=== PATIENT | male | born 1970 | race Caucasian/White ===

== ENCOUNTER → 2025-08-05 | Day surgery (SDC) | payer MEDICARE, MEDICAID ==
[~2025-08-05] VITALS: Ht 165.1 cm; Wt 98.9 kg
[~2025-08-05] MED LIST: ACETAMINOPHEN 325MG TABLET PO PRN; ASPI-1497 PO; ATOR40TA70 PO; CARV3.1242 PO; CLOP-31 PO; FENTANYL CITRATE/PF 50MCG/ML 2ML VIAL ONE; FURO20TA4 PO; HEPARIN 1000 UNITS/ML 10ML ONE; IODIXANOL 320 MG/ML 150ML BOTTLE IV ONE; LIDOCAINE HCL 1% 20ML VIAL ONE; LOSA25TA26 PO; MIDAZOLAM HCL 2 MG/2 ML VIAL ONE; ONDANSETRON HCL 4MG/2ML INJ IV PRN; POTA-205 PO; SITA1TAB6 PO; SODIUM CHLORIDE 0.45% 500 ML IV ONE
== END | disposition home or self-care (01) ==
LOC: CCL 05:24
PROVIDERS: ATTEND Specialist
DX: I25.10 Atherosclerotic heart disease of native coronary artery without angina pectoris (principal); I25.5 Ischemic cardiomyopathy; I49.3 Ventricular premature depolarization; E11.9 Type 2 diabetes mellitus without complications; F10.10 Alcohol abuse, uncomplicated; Z79.02 Long term (current) use of antithrombotics/antiplatelets; Z79.82 Long term (current) use of aspirin; Z79.84 Long term (current) use of oral hypoglycemic drugs; Z79.899 Other long term (current) drug therapy; Z95.1 Presence of aortocoronary bypass graft; Z98.890 Other specified postprocedural states
CPT/HCPCS: 93458; 82962; 93880; 93923; 71045; 93970; C1893; C1725; C1769 ×2; J3010; J1644 ×2; J2003; J2250; Q9967; C1887; 99152; A4606; G0500